=== PATIENT | male | born 1980 | race Caucasian/White ===

== ENCOUNTER → 2016-11-27 | Day surgery (SDC) | payer MEDICARE ==
[~2016-11-27] VITALS: Ht 152.4 cm; Wt 90.7 kg
[~2016-11-27] MED LIST: CLARITIN10 MG PO; DAYPRO600 M1 PO; MEDROL DOSEPAK4 MG PO; PRILOSEC20 M1 PO; ROBAXIN750 MG PO; SYNTHROID25 MCG PO
[2016-11-27 09:28] VITALS: BP 157/90
[2016-11-27 10:02] VITALS: BP 135/85
[2016-11-27 10:17] VITALS: BP 151/78
== END | disposition home or self-care (01) ==
LOC: SDC 11-24 09:30
DX: C44.319 Basal cell carcinoma of skin of other parts of face (principal); Z85.841 Personal history of malignant neoplasm of brain; E03.9 Hypothyroidism, unspecified; E78.5 Hyperlipidemia, unspecified; K21.9 Gastro-esophageal reflux disease without esophagitis; F32.9 Major depressive disorder, single episode, unspecified; Z79.899 Other long term (current) drug therapy

== ENCOUNTER 2017-01-04 16:03 | Emergency (ER) | payer MEDICARE ==
[~2017-01-04] VITALS: Wt 99.8 kg
[2017-01-04 17:20] VITALS: BP 154/70
[2017-01-04] MEDS ORDERED: NORCO 5-325 TA1 EACH PO (18:17)
[2017-01-06] MEDS ORDERED: GOOD NEIGHBOR150 MG PO (09:06)
[2017-01-06] MEDS ORDERED: MEGARED PO (09:07)
== END 2017-01-04 18:19 | disposition home or self-care (01) ==
LOC: ED 16:03
DX: S82.831A Other fracture of upper and lower end of right fibula, initial encounter for closed fracture (principal); Z79.899 Other long term (current) drug therapy; X50.9XXA Other and unspecified overexertion or strenuous movements or postures, initial encounter; Y93.89 Activity, other specified; Y92.89 Other specified places as the place of occurrence of the external cause; Y99.9 Unspecified external cause status

== ENCOUNTER → 2017-01-06 | Outpatient (CLI) | payer MEDICARE ==
[~2017-01-06] MED LIST changes: +GOOD NEIGHBOR150 MG PO; +MEGARED PO; +NORCO 5-325 TA1 EACH PO
[2017-01-06 10:05] LABS: BASO # 0.1 10*3/uL (0.0-0.1); BASO % 0.6 % (0.0-1.0); EOS # 0.6 10*3/uL (0.0-0.4); EOS % 3.5 % (1.0-4.0); HEMATOCRIT 45.2 % (42.0-52.0); HEMOGLOBIN 14.7 g/dl (14.0-18.0); LYMPH # 1.7 10*3/uL (1.3-4.4); LYMPH % 10.7 % (27.0-41.0); MEAN CELL VOLUME 84.8 fl (80.0-94.0); MEAN CORPUSCULAR HGB 27.6 pg (27.0-31.0); MEAN CORPUSCULAR HGB CONC 32.5 g/dl (33.0-37.0); MEAN PLATELET VOLUME 8.6 fl (9.6-12.3); MONO # 1.2 10*3/uL (0.1-1.0); MONO % 7.4 % (3.0-9.0); NEUT % 76.9 % (47.0-73.0); PLATELET COUNT AUTOMATED 297 10*3/uL (130-400); RED BLOOD COUNT 5.33 10*6/uL (4.50-5.90); WHITE BLOOD COUNT 15.6 10*3/uL (4.8-10.8)
[2017-01-06 10:29] LABS: ALBUMIN 3.6 gm/dl (3.1-4.5); ALKALINE PHOSPHATASE 86 U/L (45-117); BUN 10 mg/dl (7-24); CHLORIDE 100 mmol/L (98-107); POTASSIUM 4.5 mmol/L (3.5-5.1); SGOT/AST 27 IU/L (3-35); SGPT/ALT 28 U/L (12-78); SODIUM 137 mmol/L (136-145)
[2017-01-06 11:38] LABS: BILIRUBIN 1+ (NEGATIVE); BLOOD TRACE-LYSED (NEGATIVE); CLARITY CLEAR (CLEAR); COLOR YELLOW (YELLOW); GLUCOSE NEGATIVE (NEGATIVE); KETONE 1+ (NEGATIVE); LEUKO ESTERASE NEGATIVE (NEGATIVE); NITRITE NEGATIVE (NEGATIVE); SPECIFIC GRAVITY 1.015 (1.005-1.030)
[2017-01-06 11:53] LABS: EPITHELIAL CELLS 0-2; MUCOUS 1+; RBC 0-2 rbc/hpf (0-2)
== END | disposition home or self-care (01) ==
LOC: LAB 08:48
PROVIDERS: Orthopaedic Surgery
DX: Z01.818 Encounter for other preprocedural examination (principal); S82.891A Other fracture of right lower leg, initial encounter for closed fracture; S93.04XA Dislocation of right ankle joint, initial encounter; L40.9 Psoriasis, unspecified; K05.10 Chronic gingivitis, plaque induced; Z79.899 Other long term (current) drug therapy; X58.XXXA Exposure to other specified factors, initial encounter; Y93.89 Activity, other specified; Y92.89 Other specified places as the place of occurrence of the external cause; Y99.8 Other external cause status

== ENCOUNTER → 2017-01-20 | Outpatient (CLI) | payer MEDICARE ==
[2017-01-20 09:06] LABS: BASO # 0.1 10*3/uL (0.0-0.1); BASO % 0.7 % (0.0-1.0); EOS # 0.9 10*3/uL (0.0-0.4); EOS % 5.9 % (1.0-4.0); HEMATOCRIT 46.5 % (42.0-52.0); HEMOGLOBIN 15.4 g/dl (14.0-18.0); LYMPH # 2.6 10*3/uL (1.3-4.4); LYMPH % 17.5 % (27.0-41.0); MEAN CELL VOLUME 84.4 fl (80.0-94.0); MEAN CORPUSCULAR HGB 27.9 pg (27.0-31.0); MEAN CORPUSCULAR HGB CONC 33.1 g/dl (33.0-37.0); MEAN PLATELET VOLUME 8.8 fl (9.6-12.3); MONO # 1.2 10*3/uL (0.1-1.0); MONO % 7.6 % (3.0-9.0); NEUT # 10.2 10*3/uL (2.3-7.9); NEUT % 67.4 % (47.0-73.0); PLATELET COUNT AUTOMATED 370 10*3/uL (130-400); RED BLOOD COUNT 5.51 10*6/uL (4.50-5.90); RED CELL DISTRI WIDTH 13.6 % (0-14.5); WHITE BLOOD COUNT 15.1 10*3/uL (4.8-10.8)
== END | disposition home or self-care (01) ==
LOC: LAB 08:42
PROVIDERS: Orthopaedic Surgery
DX: R89.9 Unspecified abnormal finding in specimens from other organs, systems and tissues (principal)

== ENCOUNTER → 2017-01-22 | Day surgery (SDC) | payer MEDICARE ==
[~2017-01-22] VITALS: Ht 170.1 cm; Wt 90.7 kg
[2017-01-22] VITALS (8 sets, daily range): BP systolic 138–150; BP diastolic 78–95
[~2017-01-22] MED LIST changes: +MEGARED OMEGA-1 EAC1 PO; -MEGARED PO; +Percocet 325 MG1 TAB PO; +ZOFRAN4 MG PO
--- NOTE | ~2017-01-22 | O ---
[place], [place] OPERATIVE NOTE NAME[id number] UNIT #: [id number] ROOM: DOCTOR: NATA SIDDIQUI DO BIRTHDATE: [birth year] DOS: 01/22/2017 PREOPERATIVE DIAGNOSES: Right fibular fracture with disrupted syndesmosis. POSTOPERATIVE DIAGNOSES: Right fibular fracture with disrupted syndesmosis. PROCEDURE: Open reduction and internal fixation of right fibular fracture with syndesmotic screw fixation. SURGEON: Nata Siddiqui DO. FERRULER: Gin. ANESTHESIA: Frances Santa, REPLANTING MACHINE OPERATOR, general endotracheal. INDICATIONS: The patient is a 36-year-old male with a history of a fall from his tractor on 01/04/2017, where he twisted the right ankle. The patient was brought to the Emergency Room and noted to have a distal fibular shaft fracture with talar dislocation. A closed reduction was performed in the Emergency Room. The patient was scheduled for surgery, but continued to have delays due to his skin condition and severe gingivitis. The patient had been followed regularly and was scheduled to proceed with surgery today. The risks and benefits of the procedure were explained to the patient and his family preoperatively. Preoperative labs and x-rays were obtained. DESCRIPTION OF PROCEDURE: The right ankle was marked in the holding room. The patient was brought to the operative suite. General anesthetic with endotracheal intubation was performed. The patient received Ancef 2 grams IV piggyback preoperatively. The timeout was performed. The right lower extremity was prepped and draped in the usual orthopedic manner. The tourniquet was applied to the right upper thigh. A Tegaderm was placed over the healing fracture blister medially. The extremity was exsanguinated and the tourniquet was inflated to 350 mmHg. A longitudinal incision was made over the lateral ankle and fracture site. Subcutaneous tissue was spread down to the level of the fibula. The fracture site was identified and noted to be comminuted. The area was cleared of any soft tissue or fibrotic tissue. A direct reduction was performed and held with bone holding clamps. This was evaluated under C-arm in multiple planes. A 10-hole plate was used to span the fracture of the distal fibula. The 2 distal screw holes were drilled and filled with appropriate size cancellous screws which were bicortical. The proximal 3 screw holes were drilled and filled with cortical screws. Positioning was evaluated under C-arm in multiple planes. This was noted to close the syndesmosis and improve the positioning of the talus within the mortise. Under C-arm guidance, a partially threaded K-wire was placed from lateral to medial. The length was measured. A cannulated drill was used to drill over the K-wire and a 60 mm 4.5 cannulated screw was placed as a syndesmotic stabilizer. The K-wire was removed. The area was copiously irrigated with normal saline. The area was evaluated in multiple planes and found to have an adequate reduction. The wound was closed in a layered fashion [place], [place] OPERATIVE NOTE NAME: FEI HERNANDEZ UNIT #: [id number] ROOM: DOCTOR: NATA SIDDIQUI DO BIRTHDATE: [birth year] using 2-0 Vicryl followed by skin joseph. The incision as well as the ankle joint were injected with Marcaine 0.5% plain. Xeroform, 4 x 4s, Webril and ABDs were applied at the metatarsal heads and surgical site. The tourniquet was released. The dressing was completed with a posterior splint as well as a sugar tong splint for mediolateral support. Renny bandage completed the dressing. The anesthetic was reversed. The patient was extubated and taken to the recovery room in satisfactory condition. COUNTS: Sponge and needle count correct. ESTIMATED BLOOD LOSS: 10 mL. SPECIMENS: None. DRAINS: None. PACKING: None. IMPLANTS: 1. Synthes 10-hole 1/3 tubular plate. 2. Cancellous screws 4.0 mm x 14 mm and 16 mm. 3. Cortical screws 3.5 x 12 mm x 3 cannulated screws 4.5 mm x 16 mm. FINDINGS: Comminuted fibular shaft fracture with ruptured syndesmosis, right ankle. NATA SIDDIQUI DO CM:OPRECORD:OPERATIVE NOTE [id number] NATA SIDDIQUI DO 01/27/17 0738 interface
[2017-01-22 08:08] LABS: BASO # 0.1 10*3/uL (0.0-0.1); EOS # 0.9 10*3/uL (0.0-0.4); EOS % 6.9 % (1.0-4.0); HEMATOCRIT 47.6 % (42.0-52.0); HEMOGLOBIN 15.8 g/dl (14.0-18.0); LYMPH # 2.3 10*3/uL (1.3-4.4); MEAN CELL VOLUME 84.1 fl (80.0-94.0); MEAN CORPUSCULAR HGB 27.9 pg (27.0-31.0); MEAN CORPUSCULAR HGB CONC 33.2 g/dl (33.0-37.0); MEAN PLATELET VOLUME 8.6 fl (9.6-12.3); MONO # 1.1 10*3/uL (0.1-1.0); MONO % 8.3 % (3.0-9.0); NEUT # 8.8 10*3/uL (2.3-7.9); NEUT % 65.8 % (47.0-73.0); PLATELET COUNT AUTOMATED 342 10*3/uL (130-400); RED BLOOD COUNT 5.66 10*6/uL (4.50-5.90); RED CELL DISTRI WIDTH 13.7 % (0-14.5); WHITE BLOOD COUNT 13.4 10*3/uL (4.8-10.8)
== END | disposition home or self-care (01) ==
LOC: SDC 01-06 08:45
PROVIDERS: Orthopaedic Surgery
DX: S82.451A Displaced comminuted fracture of shaft of right fibula, initial encounter for closed fracture (principal); E66.01 Morbid (severe) obesity due to excess calories; J45.909 Unspecified asthma, uncomplicated; E89.0 Postprocedural hypothyroidism; K21.9 Gastro-esophageal reflux disease without esophagitis; E78.5 Hyperlipidemia, unspecified; F32.9 Major depressive disorder, single episode, unspecified; Z79.899 Other long term (current) drug therapy; Z98.890 Other specified postprocedural states; V87.8XXA Person injured in other specified noncollision transport accidents involving motor vehicle (traffic), initial encounter; Y93.89 Activity, other specified; Y92.89 Other specified places as the place of occurrence of the external cause; Y99.8 Other external cause status

== ENCOUNTER → 2017-02-12 | Outpatient (CLI) | payer MEDICARE | END | disposition home or self-care (01) | LOC: ORTHO 03:59 | DX: S82.891D Other fracture of right lower leg, subsequent encounter for closed fracture with routine healing (principal); X58.XXXD Exposure to other specified factors, subsequent encounter ==

== ENCOUNTER → 2017-03-17 | Outpatient (CLI) | payer MEDICARE | END | disposition home or self-care (01) | LOC: ORTHO 01:30 | DX: S82.891D Other fracture of right lower leg, subsequent encounter for closed fracture with routine healing (principal); X58.XXXD Exposure to other specified factors, subsequent encounter ==

== ENCOUNTER → 2017-04-17 | Outpatient (CLI) | payer MEDICARE | END | disposition home or self-care (01) | LOC: ORTHO 00:37 | DX: S82.61XD Displaced fracture of lateral malleolus of right fibula, subsequent encounter for closed fracture with routine healing (principal); X58.XXXD Exposure to other specified factors, subsequent encounter ==

== ENCOUNTER → 2017-05-08 | Outpatient (CLI) | payer MEDICARE ==
[2017-05-08 13:13] LABS: BASO # 0.1 10*3/uL (0.0-0.1); EOS # 0.9 10*3/uL (0.0-0.4); EOS % 6.4 % (1.0-4.0); HEMATOCRIT 46.6 % (42.0-52.0); HEMOGLOBIN 15.7 g/dl (14.0-18.0); LYMPH # 2.1 10*3/uL (1.3-4.4); LYMPH % 14.2 % (27.0-41.0); MEAN CELL VOLUME 82.9 fl (80.0-94.0); MEAN CORPUSCULAR HGB 27.9 pg (27.0-31.0); MEAN CORPUSCULAR HGB CONC 33.7 g/dl (33.0-37.0); MEAN PLATELET VOLUME 8.6 fl (9.6-12.3); MONO % 6.7 % (3.0-9.0); NEUT # 10.2 10*3/uL (2.3-7.9); NEUT % 70.8 % (47.0-73.0); PLATELET COUNT AUTOMATED 311 10*3/uL (130-400); RED BLOOD COUNT 5.62 10*6/uL (4.50-5.90); RED CELL DISTRI WIDTH 13.9 % (0-14.5); WHITE BLOOD COUNT 14.4 10*3/uL (4.8-10.8)
[2017-05-08 13:31] LABS: BUN 8 mg/dl (7-24); CHLORIDE 97 mmol/L (98-107); CREATININE 0.89 mg/dL (0.70-1.30); POTASSIUM 3.6 mmol/L (3.5-5.1); SODIUM 136 mmol/L (136-145)
== END | disposition home or self-care (01) ==
LOC: LAB 10:02
PROVIDERS: Orthopaedic Surgery
DX: K05.10 Chronic gingivitis, plaque induced (principal); R89.9 Unspecified abnormal finding in specimens from other organs, systems and tissues; R84.9 Unspecified abnormal finding in specimens from respiratory organs and thorax; M25.871 Other specified joint disorders, right ankle and foot

== ENCOUNTER → 2017-05-19 | Day surgery (SDC) | payer MEDICARE ==
[~2017-05-19] VITALS: Ht 165.1 cm; Wt 111.6 kg
--- NOTE | ~2017-05-19 | O ---
[place], [place] OPERATIVE NOTE NAME: FEI HERNANDEZ UNIT #: [id number] ROOM: DOCTOR: NATA HENNESSY DO BIRTHDATE: [birth year] DOS: 05/19/2017 PREOPERATIVE DIAGNOSIS: Retained hardware, right ankle. POSTOPERATIVE DIAGNOSIS: Retained hardware, right ankle. PROCEDURE: Attempted retained hardware of the right ankle, procedure aborted due to difficulty with intubation. INDICATIONS: The patient is a 36-year-old male who underwent an open reduction and internal fixation of the right ankle with a syndesmotic screw placement approximately 3 months ago. The risks and benefits of the procedure were explained to the patient preoperatively. Preoperative labs and x-rays were obtained. PROCEDURE IN DETAIL: The right ankle was marked in the holding room. The patient was brought to the operative suite. A timeout was performed. A general anesthetic with attempted intubation was performed. There was difficulty with intubation and the procedure was aborted at this point. No surgery was performed and the patient will be rescheduled in the near future. NATA HENNESSY DO CM:OPRECORD:OPERATIVE NOTE [id number] NATA HENNESSY DO 06/11/17 1155 interface
[2017-05-19 08:59] VITALS: BP 122/81
[2017-05-19 09:20] VITALS: BP 158/101
[2017-05-19 09:50] VITALS: BP 174/89
[2017-05-19 10:04] VITALS: BP 133/73
[2017-05-19 10:20] VITALS: BP 125/90
[2017-05-19 10:35] VITALS: BP 125/75
== END | disposition home or self-care (01) ==
LOC: SDC 05-07 09:30
DX: Z47.2 Encounter for removal of internal fixation device (principal); K21.9 Gastro-esophageal reflux disease without esophagitis; J45.909 Unspecified asthma, uncomplicated; E66.01 Morbid (severe) obesity due to excess calories; Z68.41 Body mass index [BMI] 40.0-44.9, adult; Z79.899 Other long term (current) drug therapy; Z85.841 Personal history of malignant neoplasm of brain; E07.89 Other specified disorders of thyroid

== ENCOUNTER → 2017-06-09 | Day surgery (SDC) | payer MEDICARE ==
[~2017-06-09] VITALS: Ht 165.1 cm; Wt 111.6 kg
--- NOTE | ~2017-06-09 | O ---
[place], [place] OPERATIVE NOTE NAME[id number] UNIT #: [id number] ROOM: DOCTOR: NATA SIDDIQUI DO BIRTHDATE: [birth year] DOS: 06/09/2017 PREOPERATIVE DIAGNOSIS: Right ankle retained hardware. POSTOPERATIVE DIAGNOSIS: Right ankle retained hardware. PROCEDURE: Removal of retained hardware, syndesmotic screw, right ankle. SURGEON: Nata Siddiqui DO. FIRST ASSISTANTS: Clemente. ANESTHESIOLOGIST: JANET Santa. TYPE OF ANESTHESIA: Local MAC. INDICATIONS: The patient is a 36-year-old male with a history of a right ankle open reduction and internal fixation with a syndesmotic screw placement on 01/22/2017. He returned for removal of the syndesmotic screw on 05/19/2017, but had difficulty with the intubation. The case was rescheduled for 06/09/2017 with intentions of a local anesthetic with a monitored anesthetic. The risks and benefits of the procedure were explained to the patient and his father preoperatively. Preoperative labs and x-rays were obtained. PROCEDURE IN DETAIL: The right lower extremity was marked in the holding room. The patient was brought to the operative suite. The timeout was performed. The patient was placed supine on the operative table. A tourniquet was applied to the right upper thigh, but not inflated. The right lower extremity was prepped and draped in the usual orthopedic fashion. A monitored anesthetic was performed by the nurse rn acls. C-arm was utilized to identify the syndesmotic screw. The area just lateral to the syndesmotic screw was injected with Marcaine 0.5% plain. A longitudinal incision was made sharply with a scalpel approximately 2 cm in length over the syndesmotic screw. Subcutaneous tissue was spread down to the level of the screw. A handheld screwdriver was used to remove the syndesmotic screw, which was a partially threaded cannulated screw. The area was copiously irrigated with normal saline. The screw hole was cultured and then curetted with a small curette. Further irrigation was performed. X-ray was used to confirm the removal of the syndesmotic screw and the remainder of the plate and five screws were noted. The incision was closed with 2-0 Vicryl and a subcuticular closure of 4-0 Vicryl. Steri-Strips were applied. The area was again injected with Marcaine 0.5% plain. Xeroform, 4 x 4s and cast padding and an Renny were applied. The anesthetic was reversed. The patient was taken to the recovery room in satisfactory condition. Sponge and needle count correct. ESTIMATED BLOOD LOSS: 5 mL. FINDINGS: Retained syndesmotic screw, right ankle. [place], [place] OPERATIVE NOTE NAME: FEI HERNANDEZ Kathy UNIT #: [id number] ROOM: DOCTOR: NATA SIDDIQUI DO BIRTHDATE: [birth year] SPECIMENS: Culture. DRAINS: None. PACKING: None. COMPLICATIONS: None. NATA SIDDIQUI DO CM:OPRECORD:OPERATIVE NOTE 1354 [id number] NATA SIDDIQUI DO 06/26/17 1646 interface
[2017-06-09 10:30] VITALS: BP 150/93
[2017-06-09 12:45] VITALS: BP 150/89
[2017-06-09 12:58] VITALS: BP 136/87
[2017-06-09 13:15] VITALS: BP 141/87
== END | disposition home or self-care (01) ==
LOC: SDC 06-05 13:15
DX: Z47.2 Encounter for removal of internal fixation device (principal); Z87.81 Personal history of (healed) traumatic fracture; K21.9 Gastro-esophageal reflux disease without esophagitis; E07.9 Disorder of thyroid, unspecified; Z79.899 Other long term (current) drug therapy; Z98.890 Other specified postprocedural states; Z85.841 Personal history of malignant neoplasm of brain; J45.909 Unspecified asthma, uncomplicated

== ENCOUNTER → 2017-07-22 | Outpatient (CLI) | payer MEDICARE | END | disposition home or self-care (01) | LOC: ORTHO 01:28 | DX: S82.291D Other fracture of shaft of right tibia, subsequent encounter for closed fracture with routine healing (principal); X58.XXXD Exposure to other specified factors, subsequent encounter ==

== ENCOUNTER → 2019-04-14 | Outpatient (CLI) | payer MEDICARE ==
[2019-04-14 10:03] LABS: CREATININE 0.83 mg/dL (0.70-1.30)
== END | disposition home or self-care (01) ==
LOC: LAB 09:23
PROVIDERS: Registered Nurse Flight
DX: R19.00 Intra-abdominal and pelvic swelling, mass and lump, unspecified site (principal)

== ENCOUNTER → 2019-04-15 | Outpatient (CLI) | payer MEDICARE | END | disposition home or self-care (01) | LOC: CT 00:30 | DX: E27.9 Disorder of adrenal gland, unspecified (principal) ==

== ENCOUNTER 2022-11-26 14:53 | Emergency (ER) | payer MEDICARE ==
[~2022-11-26] VITALS: Wt 113.4 kg
[2022-11-26 15:02] VITALS: BP 96/51
[2022-11-26] MEDS ORDERED: LISINOPRIL5 MG PO (15:17)
[2022-11-26] MEDS ORDERED: OMEPRAZOLE40 MG PO (15:17)
[2022-11-26] MEDS ORDERED: CLARITIN10 MG PO (15:17)
[2022-11-26] MEDS ORDERED: LEVO-T88 MCG PO (15:18)
[2022-11-26] MEDS ORDERED: LIPITOR20 MG PO (15:18)
[2022-11-26 16:34] LABS: HEMATOCRIT 41.6 % (42.0-52.0); MEAN CELL VOLUME 83.5 fl (80.0-94.0); MEAN CORPUSCULAR HGB 28.5 pg (27.0-31.0); MEAN CORPUSCULAR HGB CONC 34.1 g/dl (33.0-37.0); MEAN PLATELET VOLUME 9.2 fl (9.6-12.3); PLATELET COUNT AUTOMATED 461 10*3/uL (130-400); RED BLOOD COUNT 4.98 10*6/uL (4.50-5.90); RED CELL DISTRI WIDTH 13.2 % (0-14.5); WHITE BLOOD COUNT 23.6 10*3/uL (4.8-10.8)
[2022-11-26 16:36] LABS: MANUAL DIFF REFLEX YES
[2022-11-26 16:56] LABS: ALKALINE PHOSPHATASE 79 U/L (46-116); BUN 14 mg/dl (9-23); CHLORIDE 101 mmol/L (98-107); FREE T4 1.07 ng/dl (0.89-1.76); POTASSIUM 3.3 mmol/L (3.4-5.1); SGPT/ALT 15 U/L (10-49); TOTAL PROTEIN 5.9 gm/dL (6.0-8.0)
[2022-11-26 17:00] LABS: PLATELET SUFFICIENCY NORMAL (NORMAL); TOTAL CELLS COUNTED 100 #CELLS
[2022-11-26 17:04] LABS: BILIRUBIN Negative (Negative); BLOOD Negative (Negative); CLARITY Clear (Clear); COLOR Dark Yellow (Yellow); GLUCOSE Negative (Negative); KETONE 1+ (Negative); LEUKO ESTERASE Negative (Negative); NITRITE Negative (Negative); SPECIFIC GRAVITY >= 1.030 (1.001-1.030)
[2022-11-26 17:13] LABS: BACTERIA 1+; MUCOUS 1+; RBC 0-2 rbc/hpf (0-2)
== END 2022-11-26 21:30 | disposition short-term general hospital (02) ==
LOC: ED 14:53
PROVIDERS: Internal Medicine
DX: A41.9 Sepsis, unspecified organism (principal); G93.9 Disorder of brain, unspecified; E87.6 Hypokalemia; D72.829 Elevated white blood cell count, unspecified; I61.9 Nontraumatic intracerebral hemorrhage, unspecified

== ENCOUNTER 2022-12-11 09:32 | Emergency (ER) | payer MEDICARE ==
[~2022-12-11] VITALS: Ht 172.7 cm; Wt 117.9 kg
[~2022-12-11 09:32] MED LIST changes: +LEVO-T88 MCG PO; +LIPITOR20 MG PO; +LISINOPRIL5 MG PO; +OMEPRAZOLE40 MG PO
[2022-12-11 09:54] VITALS: BP 108/60
[2022-12-11 10:48] LABS: HEMATOCRIT 33.3 % (42.0-52.0); MEAN CORPUSCULAR HGB 29.2 pg (27.0-31.0); MEAN CORPUSCULAR HGB CONC 32.4 g/dl (33.0-37.0); MEAN PLATELET VOLUME 8.3 fl (9.6-12.3); PLATELET COUNT AUTOMATED 399 10*3/uL (130-400); RED CELL DISTRI WIDTH 16.2 % (0-14.5); WHITE BLOOD COUNT 21.9 10*3/uL (4.8-10.8)
[2022-12-11 10:50] LABS: MANUAL DIFF REFLEX YES
[2022-12-11 11:09] LABS: PLATELET SUFFICIENCY NORMAL (NORMAL); TOTAL CELLS COUNTED 100 #CELLS
[2022-12-11 11:11] LABS: ALKALINE PHOSPHATASE 62 U/L (46-116); BUN 10 mg/dl (9-23); CHLORIDE 102 mmol/L (98-107); POTASSIUM 3.9 mmol/L (3.4-5.1); SGPT/ALT 38 U/L (10-49); TOTAL PROTEIN 5.6 gm/dL (6.0-8.0)
[2022-12-11 11:28] LABS: BILIRUBIN Negative (Negative); BLOOD Negative (Negative); CLARITY Clear (Clear); COLOR Yellow (Yellow); GLUCOSE Negative (Negative); KETONE Negative (Negative); LEUKO ESTERASE Negative (Negative); NITRITE Negative (Negative)
[2022-12-11 11:39] LABS: BACTERIA 1+; MUCOUS 1+; WBC 0-2 wbc/hpf (0-5)
== END 2022-12-11 12:40 | disposition home or self-care (01) ==
LOC: ED 09:32
PROVIDERS: Internal Medicine
DX: R42 Dizziness and giddiness (principal); K21.9 Gastro-esophageal reflux disease without esophagitis